=== PATIENT | male | born 1945 | race Caucasian/White ===

== ENCOUNTER → 2017-04-01 | Outpatient (CLI) | payer BC, OTHER ==
[~2017-04-01] MED LIST: ASPIR 8181 M1 PO; ATORVASTATIN CA80 MG PO; CLOPIDOGREL75 MG PO; LISINOPRIL2.5 MG PO; NICOTINE PATCH1 EAC1 TD; NITROSTAT0.4 MG SL
== END | disposition home or self-care (01) ==
LOC: NUC 09:49
DX: C61 Malignant neoplasm of prostate (principal)
CPT/HCPCS: 78306; A9503